=== PATIENT | male | born 1990 | race Caucasian/White ===

== ENCOUNTER 2019-01-10 23:37 | Emergency (ER) | payer OTHER ==
[~2019-01-10] VITALS: Ht 185.4 cm; Wt 163.3 kg
[2019-01-10 23:44] VITALS: BP 126/85
--- NOTE | 2019-01-10 23:44 | NUR ---
to bed # 09 ambulatory
--- NOTE | 2019-01-10 23:52 | NUR ---
28/M PRESENTS TO ED, C/O CONSTIPATION X3 DAYS. LBM TODAY WITH HARD, SMALL STOOL. REPORTS LOWER ABD PAIN AND RECTAL PAIN WHEN HAVING BM. PT AWAKE AND ALERT, SKIN NORMAL COLOR WARM AND DRY, RR EVEN AND UNLABORED. BS ACTIVE X4, ABD SOFT LARGE ROUND TENDER TO LUQ AND LOWER QUADRANTS. HX GASTRIC SLEEVE (11/2018) OTC SMOOTH-AWAY TEA, ENEMA AT 2200; WITH TEMPORARY RELIEF
--- NOTE | 2019-01-11 00:15 | NUR ---
REPORT AND TRANSFER OF CARE RECEIVED BY ZHENG NASCIMENTO
--- NOTE | 2019-01-11 00:41 | NUR ---
DR. PHILLIP EVALUATING PT AT PT BEDSIDE
[2019-01-11 00:59] VITALS: BP 126/85
--- NOTE | 2019-01-11 00:59 | NUR ---
Patient discharged with v/s stable. Written and verbal after care instructions given and explained. Pt encouraged to drink plenty of fluid and to incorporate fiber into diet. Patient alert, oriented and verbalized understanding of instructions. Ambulatory with steady gait. All questions addressed prior to discharge. ID band removed. Patient advised to follow up with PMD. Rx of COLACE 100MG AND MAGNESIUM CITRATE LOW SODIUM SOLUTION 300CC was given. Patient educated on indication of medication including possible reaction and side effects. Opportunity to ask questions provided and answered.
== END 2019-01-11 00:59 | disposition home or self-care (01) ==
LOC: MED 23:37
DX: K59.00 Constipation, unspecified (principal); Z90.49 Acquired absence of other specified parts of digestive tract; Z98.890 Other specified postprocedural states; Z98.84 Bariatric surgery status
CPT/HCPCS: 99282

== ENCOUNTER 2019-08-21 04:48 | Emergency (ER) | payer OTHER ==
[~2019-08-21] VITALS: Ht 185.4 cm; Wt 124.7 kg
[2019-08-21 04:53] VITALS: BP 124/72
[2019-08-21] MEDS ORDERED: KETOROLAC 30 MG/ML VIAL IVP ONE ×2 (05:15→06:00)
[2019-08-21 05:48] LABS: BASOPHILS # (AUTO) 0.1 K/uL (0.00-0.22); BASOPHILS % (AUTO) 1.4 % (0.0-2.0); EOSINOPHILS # (AUTO) 0.1 K/uL (0-0.4); EOSINOPHILS % (AUTO) 2.8 % (0.0-4.0); HEMATOCRIT 43.9 % (36-52); HEMOGLOBIN 14.5 g/dL (12.0-18.0); LYMPHOCYTES # (AUTO) 1.4 K/uL (2.0-11.5); LYMPHOCYTES % (AUTO) 33.1 % (20.5-51.1); MEAN CORPUSCULAR HEMOGLOBIN 30 pg (27-31); MEAN CORPUSCULAR HGB CONC 33 g/dL (33-37); MEAN CORPUSCULAR VOLUME 89.7 fL (80-94); MONOCYTES # (AUTO) 0.3 K/uL (0.8-1.0); MONOCYTES % (AUTO) 7.5 % (1.7-9.3); NEUTROPHILS # (AUTO) 2.3 K/uL (1.8-7.7); NEUTROPHILS % (AUTO) 55.2 % (42.2-75.2); PLATELET COUNT (AUTO) 104 K/uL (140-450); RED BLOOD CELL COUNT(AUTO) 4.89 MIL/uL (4.20-6.10); RED CELL DISTRIBUTION WIDTH 13.6 % (11.6-13.7); WHITE BLOOD COUNT (AUTO) 4.2 K/uL (4.8-10.8)
[2019-08-21 05:56] LABS: ALBUMIN 4.1 g/dL (3.4-5.0); ANION GAP 11.7 (8-16); CARBON DIOXIDE 30.1 mmol/L (21-32); CREATININE 0.8 mg/dL (0.6-1.3); POTASSIUM 3.8 mmol/L (3.5-5.1); TOTAL BILIRUBIN 0.9 mg/dL (0.0-1.0)
[2019-08-21] MEDS ORDERED: LACTULOSE 20 GM/30 ML UDC PO ONE (06:40)
[2019-08-21 06:46] VITALS: BP 124/72
== END 2019-08-21 06:46 | disposition home or self-care (01) ==
LOC: MED 04:48
DX: K59.00 Constipation, unspecified (principal); F12.90 Cannabis use, unspecified, uncomplicated; Z98.84 Bariatric surgery status
CPT/HCPCS: 36415; 74176; 80053; 81002; 83690; 85025; 96374; 99284; J1885

== ENCOUNTER 2022-08-15 14:03 | Emergency (ER) | payer OTHER ==
[~2022-08-15] VITALS: Ht 185.4 cm; Wt 2.3 kg
[2022-08-15 14:10] VITALS: BP 134/75
[2022-08-15 15:06] LABS: BASOPHILS % (AUTO) 0.7 % (0.0-2.0); EOSINOPHILS # (AUTO) 0.2 K/uL (0-0.4); EOSINOPHILS % (AUTO) 3.7 % (0.0-4.0); HEMATOCRIT 42.7 % (36-52); HEMOGLOBIN 14.4 g/dL (12.0-18.0); LYMPHOCYTES # (AUTO) 1.9 K/uL (2.0-11.5); LYMPHOCYTES % (AUTO) 32.6 % (20.5-51.1); MEAN CORPUSCULAR HEMOGLOBIN 30 pg (27-31); MEAN CORPUSCULAR HGB CONC 34 g/dL (33-37); MEAN CORPUSCULAR VOLUME 89.4 fL (80-94); MONOCYTES # (AUTO) 0.3 K/uL (0.8-1.0); MONOCYTES % (AUTO) 4.9 % (1.7-9.3); NEUTROPHILS # (AUTO) 3.4 K/uL (1.8-7.7); NEUTROPHILS % (AUTO) 58.1 % (42.2-75.2); PLATELET COUNT (AUTO) 137 K/uL (140-450); RED BLOOD CELL COUNT(AUTO) 4.77 MIL/uL (4.20-6.10); RED CELL DISTRIBUTION WIDTH 13.8 % (11.6-13.7); WHITE BLOOD COUNT (AUTO) 5.8 K/uL (4.8-10.8)
[2022-08-15 15:24] LABS: ANION GAP 7.9 (8-16); CARBON DIOXIDE 31.1 mmol/L (21-32); CREATININE 0.8 mg/dL (0.6-1.3)
[2022-08-15 16:07] VITALS: BP 134/75
[2022-08-15 16:17] VITALS: BP 132/80
--- NOTE | 2022-08-15 16:27 | NUR ---
Patient discharged with v/s stable. Written and verbal after care instructions given and explained. Patient verbalized understanding. Ambulatory with steady gait. All questions addressed prior to discharge. Advised to follow up with PMD.
== END 2022-08-15 16:17 | disposition home or self-care (01) ==
LOC: MED 14:03
DX: K08.89 Other specified disorders of teeth and supporting structures (principal); Z79.899 Other long term (current) drug therapy
CPT/HCPCS: 36415; 80048; 85025; 99283